=== PATIENT | female | born 1990 | race African-American/Black ===

== ENCOUNTER 2021-06-10 12:09 | Emergency (ER) | payer BC ==
[2021-06-10 23:46] LABS: SARS-CoV-2 PCR by NAA Not Detected (NotDetected)
== END 2021-06-10 14:07 | disposition home or self-care (01) ==
LOC: BURERS 12:09
DX: J10.1 Influenza due to other identified influenza virus with other respiratory manifestations (principal); Z20.822 Contact with and (suspected) exposure to COVID-19
CPT/HCPCS: 87804; 99283; U0003; U0005